=== PATIENT | female | born 1975 | race Caucasian/White ===

== ENCOUNTER → 2016-05-25 | Outpatient (CLI) | payer BC ==
[~2016-05-25] MED LIST: LORA-741 PO; MULT-506 PO; OMEG10007 PO
[2016-05-25 12:30] LABS: BASO % 0.4 %; BASO ABS # 0.02 K/uL (0-0.2); COMPLETE YES; EOS % 2.3 %; HEMATOCRIT 39.3 % (37-47); IG% 0.4 %; LYMPH % 40.1 %; LYMPH ABS # 1.92 K/uL (1.2-3.4); MEAN CELL VOLUME 89.9 fL (80-100); MEAN CORPUSCULAR HGB CONC 33.3 g/dl (32-36); MEAN PLATELET VOLUME 10.9 fL (7.4-10.4); MONO % 5.8 %; PLATELET COUNT 264 K/uL (130-400); RED BLOOD COUNT 4.37 M/uL (4.2-5.4); WHITE BLOOD COUNT 4.79 K/uL (4.8-10.8)
== END | disposition home or self-care (01) ==
LOC: C.LAB1850 11:15
PROVIDERS: ATTEND Obstetrics & Gynecology
DX: N92.0 Excessive and frequent menstruation with regular cycle (principal); N93.9 Abnormal uterine and vaginal bleeding, unspecified; D25.0 Submucous leiomyoma of uterus

== ENCOUNTER → 2016-06-24 | Day surgery (SDC) | payer BC ==
[2016-06-05 07:42] VITALS: Ht 160 cm; Wt 81.8 kg
[~2016-06-24] VITALS: Ht 160 cm; Wt 81.8 kg
[~2016-06-24] MED LIST changes: +ATROPINE SULFATE 0.1 MG/ML 5ML SYR IV PRN; +DEXAMETHASONE SOD INJ 4 MG/ML VIAL ONE; +EpHEDrine SULFATE INJ 50 MG/ML AMP IV PRN; +FENTANYL CITRATE INJ 50 MCG/1 ML 2 ML VIAL ONE; +IBUPROFEN 600 MG TAB PO PRN; +KETOROLAC TROMETHAMINE 30 MG/ML VIAL IV. PRN; +KETOROLAC TROMETHAMINE 30 MG/ML VIAL ONE; +LACTATED RINGER'S 1000ML 1,000 ML IV SCH; +LIDOCAINE HCL 2% 2 ML VIAL (20MG/ML) ONE; +MIDAZOLAM HCL 1 MG/ML 2ML VIAL ONE; +ONDANSETRON INJ 2 MG/ML 2 ML VIAL IV PRN; +ONDANSETRON INJ 2 MG/ML 2 ML VIAL ONE; +OXYCODONE/ACETAMINOPHEN 5-325 TAB PO PRN; +PROMETHAZINE HCL INJ 25 MG in SODIUM CHLORIDE 0.9% 50ML 50 ML IV PRN; +PROPOFOL IV EMULSION 10 MG/ML 20 ML VIAL IV ONE; +SILVER NITR/POTASSIUM NITRATE 10 APPLICATOR PACK ONE; +SODIUM CHLORIDE 0.9% 1000ML 1,000 ML IV SCH
--- NOTE | 2016-06-24 12:06 | History & Physical Bridge - [place] ---
H&P Re-Evaluation Bridge Note: I have examined the patient, reviewed the History & Physical and in the interval since the performance of the History & Physical I have noted the following changes of clinical significance: No changes noted
--- NOTE | 2016-06-24 13:10 | [facility] Post Operative Brief Note ---
Immediate Operative Summary Operative Date Jun 24, 2016. Pre-Operative Diagnosis Abnormal uterine bleeding, SM fibroid Post-Operative Diagnosis 1. Same as preop 2. ? polyp vs. fibroid Procedure(s) Performed Dilatation And Curettage, Hysteroscopy, Resection Of Endometrial Lesion Using Myosure, Endometrial Ablation Using Novasure Surgeon Dr. Luis Carlos Tang Grain Sacker Surgeon(s) None Estimated Blood Loss 2 mL Findings uterus sounds to 9cm. small anterior uterine wall lesion noted. at time of resection seemed more c/w polyp not fibroid. minimal curettings. nl tubal ostia bilaterally. cx length 3.5cm. cavity length 5.5cm. cavity width 4.6cm. ablation in 1min 17sec. Fluids (cc crystalloids) 650 Specimens A: Endometrial curettings with ? fibroid vs polyp Drains none Anesthesia general Complication(s) None Disposition Recovery Room / PACU
--- NOTE | 2016-06-24 13:12 | Discharge Instructions ---
Discharge Instructions Admission Reason for Admission: Abnl Uterine Bleeding, Submucous Leiomyoma Uterus Discharge Discharge Diagnosis / Problem: status post surgery Discharge Goals Goal(s): Routine recovery after surgery Activity Recommendations Activity Limitations: as noted below . Instructions / Follow-Up Instructions / Follow-Up ACTIVITY RECOMMENDATIONS: * Avoid tampons, douching, hot tubs, pools, and intercourse until bleeding has stopped. * May shower as usual. * No strenuous activity for 24-48 hours. After 24-48 hours, you may do anything you feel like doing (driving and sports are okay). SPECIAL CARE INSTRUCTIONS: Special Diet: * Mild nausea may occur in the immediate post-operative period. * Take clear liquids such as tea, cola or bouillon until all nausea has subsided; you may then resume your normal diet. Special Care: * Light bleeding and vaginal spotting can last from a few days to 3-4 weeks. Call your doctor if bleeding becomes heavier than the heaviest part of your period. * Check your temperature twice a day for one week. If it goes above 100.4 degrees Fahrenheit (38.0 Celsius), notify your doctor. * Call your doctor's office for an appointment for 2 weeks after your surgery. FOLLOW-UP VISIT: Call your doctor's office for an appointment for 2 weeks after your surgery. Current Hospital Diet Patient's current hospital diet: Discharge Diet Recommended Diet: Regular Diet Procedures Procedures Performed: Dilatation And Curettage, Hysteroscopy, Resection Of Endometrial Lesion Using Myosure, Endometrial Ablation Using Novasure Pending Studies Studies pending at discharge: yes List of pending studies: pathology Medical Emergencies . Who to Call and When: Medical Emergencies: If at any time you feel your situation is an emergency, please call 911 immediately. . Non-Emergent Contact Non-Emergency issues call your: Flight Engineer Inspector Call Non-Emergent contact if: you have a fever . . "Provider Documentation" section prepared by Rolanda Tang. VTE Core Measure Inpt VTE Proph given/why not?: Treatment not indicated
[2016-06-24] MEDS: FENTANYL CITRATE INJ 50 MCG/1 ML 2 ML VIAL IV PRN ×4 (13:15→13:37)
--- NOTE | 2016-06-24 13:16 | Medical Student: [facility] ---
Immediate Operative Summary Operative Date Jun 24, 2016. Pre-Operative Diagnosis Abnormal Uterine Bleeding and Uterine Submucosal Fibroid Post-Operative Diagnosis ? Uterine Fibroid vs Polyp Procedure(s) Performed Dilation and Curettage, Hysteroscopy, resection of endometrial lesion with Myosure and endometrial ablation with Novasure Surgeon Dr. Tang Gluing Machine Offbearer Surgeon(s) None Estimated Blood Loss 2 cc Findings Uterus sounds to 9 cm. Cervix length 3.5 cm. Cavity length 5.5 cm. Cavity width 4.6 cm. Small anterior uterine wall lesion appreciated which appeared more consistent with polyp instead of fibroid. Minimal curettings and ablation in 1 min 17 sec. Normal tubal ostia b/l Fluids (cc crystalloids) 650 cc Specimens Endometrial Curettings of ? fibroid vs polyp? Drains None Anesthesia General Complication(s) None Disposition Recovery Room / PACU
--- NOTE | 2016-06-24 13:53 | OPERATIVE REPORT ---
DATE OF OPERATION: 06/24/2016 PREOPERATIVE DIAGNOSES: 1. Abnormal uterine bleeding. 2. Submucosal fibroid. POSTOPERATIVE DIAGNOSES: 1. Same. 2. Possible polyp versus submucosal fibroid. PROCEDURES: 1. Dilatation and curettage. 2. Hysteroscopy. 3. Resection of endometrial lesion with MyoSure. 4. Endometrial ablation with NovaSure. SURGEON: Dr. Rolanda Tang. WINE MASTER: None. IV FLUIDS: 650 mL. ESTIMATED BLOOD LOSS: 2 mL. ANESTHESIA: General. FINDINGS: Uterus sounds to 9 cm, normal tubal ostia bilaterally. Approximately 1 cm lesion indenting the anterior uterine wall that does not seem firm on visual inspection nor on resection seemingly more consistent with a polyp. Uterine length, 5.5 cm, uterine width 4.6 cm. Endometrial ablation takes place in 1 minute 17 seconds. Hysteroscopic finding is consistent with endometrial ablation. Saline and hysteroscopic fluid deficit 20 mL. INDICATIONS: A 41-year-old with a history of abnormal uterine bleeding and a known fibroid uterus, who desired surgical management. She had undergone a preprocedure evaluation to include a normal hemoglobin, recent normal Pap smear, and negative or normal endometrial biopsy and a saline ultrasound. She was aware of her treatment options including medications, IUD, ablation, hysterectomy and myomectomy. She does not want further childbearing and is not currently sexually active. She is aware that endometrial ablation will not act as a control method. She desired to proceed with resection of myoma and endometrial ablation concomitantly. PROCEDURE: The patient was taken to the operating room and identified. After adequate general anesthesia was obtained, she was placed in the dorsal lithotomy position and prepped and draped in the usual sterile fashion. The bladder was drained for clear yellow urine. A weighted speculum and anterior retractor were placed to visualize the cervix, which was grasped at its anterior lip with an Allis clamp. The cervix was sequentially dilated using Hegar dilators to 23. The hysteroscope was gently placed through the cervical os into the uterine cavity to allow for visualization with the findings as noted above. The MyoSure device was used to resect the anterior lesion with the findings as noted above. At this point, the scope was removed. The uterine cavity length was assessed and determined. The NovaSure device was readied after D\T\C was performed. All specimens were sent with the MyoSure specimen. The cavity width was determined. The device passed with cavity assessment. An ablation took place as noted above. The device was then allowed to cool and was removed. The hysteroscope was reintroduced to visualize the cavity, which was consistent with ablation and no evidence of perforation. At this point, the procedure was terminated. A tenaculum had been used to help narrow the cervical os externally and there was a bleeding site noted that was stitched with a single [id number] suture of 3-0 chromic for excellent hemostasis. Silver nitrate was used on the other tenaculum site for excellent hemostasis. At this point, the patient was returned to supine position. She was awoken from anesthesia and transferred to the recovery room in stable condition. All sponge, lap and needle counts were correct x2. I attest to the content of the Intraoperative Record and any orders documented therein. Any exceptio ns are noted below.
[2016-06-24 14:00] VITALS: TEMP 36.6
[2016-06-24 14:20] VITALS: BP 135/79; PULSE 71; O2SAT 99
--- NOTE | 2016-06-24 14:28 | Anesthesia Progress Nt - [facility] ---
Anesthesia Post Op Note Date & Time Jun 24, 2016 at 14:28 Vital Signs Pain Intensity: 3 Vital Signs Past 12 Hours Date Time Temp Pulse Resp B/P Pulse Ox O2 Delivery O2 Flow Rate FiO2 06/24/16 14:00 36.6 71 16 135/85 98 Room Air 06/24/16 13:55 62 98 06/24/16 13:55 62 06/24/16 13:50 70 14 06/24/16 13:50 71 14 97 06/24/16 13:49 154/87 06/24/16 13:47 69 15 06/24/16 13:47 71 15 98 06/24/16 13:47 36.7 64 14 154/87 99 Room Air 06/24/16 13:46 140/89 06/24/16 13:42 76 97 06/24/16 13:42 76 06/24/16 13:39 143/102 06/24/16 13:37 65 16 06/24/16 13:37 69 16 98 06/24/16 13:34 132/88 06/24/16 13:32 76 99 06/24/16 13:32 76 06/24/16 13:29 142/87 06/24/16 13:27 62 15 06/24/16 13:27 61 15 100 06/24/16 13:25 142/51 06/24/16 13:22 55 13 06/24/16 13:22 55 13 100 06/24/16 13:19 113/81 06/24/16 13:17 63 14 100 06/24/16 13:17 66 14 06/24/16 13:14 127/85 06/24/16 13:12 60 14 100 06/24/16 13:12 60 14 06/24/16 13:10 140/71 06/24/16 13:07 73 18 100 06/24/16 13:07 36.2 82 16 129/94 100 Mask 6 06/24/16 13:07 75 18 06/24/16 11:13 36.8 89 16 126/92 98 Room Air Notes Mental Status: alert / awake / arousable, participated in evaluation Pt Amnestic to Procedure: Yes Nausea / Vomiting: adequately controlled Pain: adequately controlled Airway Patency, RR, SpO2: stable & adequate BP & HR: stable & adequate Hydration State: stable & adequate Anesthetic Complications: no major complications apparent
== END | disposition home or self-care (01) ==
LOC: X.SURG 11:00
PROVIDERS: ATTEND Obstetrics & Gynecology
DX: N85.8 Other specified noninflammatory disorders of uterus (principal); N92.0 Excessive and frequent menstruation with regular cycle; F17.210 Nicotine dependence, cigarettes, uncomplicated; Z80.3 Family history of malignant neoplasm of breast

== ENCOUNTER → 2017-03-23 | Outpatient (CLI) | payer BC ==
[~2017-03-23] MED LIST changes: -ATROPINE SULFATE 0.1 MG/ML 5ML SYR IV PRN; -DEXAMETHASONE SOD INJ 4 MG/ML VIAL ONE; -EpHEDrine SULFATE INJ 50 MG/ML AMP IV PRN; -FENTANYL CITRATE INJ 50 MCG/1 ML 2 ML VIAL ONE; -IBUPROFEN 600 MG TAB PO PRN; -KETOROLAC TROMETHAMINE 30 MG/ML VIAL IV. PRN; -KETOROLAC TROMETHAMINE 30 MG/ML VIAL ONE; -LACTATED RINGER'S 1000ML 1,000 ML IV SCH; -LIDOCAINE HCL 2% 2 ML VIAL (20MG/ML) ONE; -MIDAZOLAM HCL 1 MG/ML 2ML VIAL ONE; -ONDANSETRON INJ 2 MG/ML 2 ML VIAL IV PRN; -ONDANSETRON INJ 2 MG/ML 2 ML VIAL ONE; -OXYCODONE/ACETAMINOPHEN 5-325 TAB PO PRN; -PROMETHAZINE HCL INJ 25 MG in SODIUM CHLORIDE 0.9% 50ML 50 ML IV PRN; -PROPOFOL IV EMULSION 10 MG/ML 20 ML VIAL IV ONE; -SILVER NITR/POTASSIUM NITRATE 10 APPLICATOR PACK ONE; -SODIUM CHLORIDE 0.9% 1000ML 1,000 ML IV SCH
== END | disposition home or self-care (01) ==
LOC: C.PAPS 12:10
PROVIDERS: ATTEND Obstetrics & Gynecology
DX: Z01.419 Encounter for gynecological examination (general) (routine) without abnormal findings (principal)